=== PATIENT | male | born 1985 | race Caucasian/White ===

== ENCOUNTER 2016-12-13 00:57 | Emergency (ER) | payer OTHER ==
[~2016-12-13] VITALS: Ht 177.8 cm; Wt 90.5 kg
[2016-12-13 01:03] VITALS: Ht 177.8 cm; Wt 90.5 kg
[2016-12-13] MEDS ORDERED: LORAZEPAM 2 MG INJ IM ONE (02:00)
[2016-12-13] MEDS ORDERED: IBUP200C11 PO (02:28)
[2016-12-13] MEDS ORDERED: HYDR-2086 PO (04:01)
--- NOTE | 2016-12-13 04:03 | ERD ---
ER Documentation Chief Complaint Date/Time DATE: 12/13/16 TIME: 04:02 Chief Complaint had a seizure due to etoh withrawal and drank few hrs ago after the seizure HPI 31-year-old male had a seizure due to the EtOH withdrawal. Patient said he drank a few hours ago. Also complaining chronic back pain. Denies any hallucinations. Denies any other current issues. ROS All systems reviewed and are negative except as per history of present illness. Medications Home Meds Active Scripts Hydrocodone Bit-Acetaminophen* (Vicodin*) 5-300 Tab, 1 TAB PO Q4H Y for PAIN, # 14 TAB Prov:SOPHIE PANCHAL 12/13/16 Reported Medications Ibuprofen* (Advil*) 200 Mg Capsule, 400 MG PO Q6H Y for PAIN, CAP 12/13/16 Allergies Allergies: Coded Allergies: No Known Allergy (Unverified , 12/13/16) PMhx/Soc History of Surgery: No Anesthesia Reaction: No Hx Neurological Disorder: No Hx Respiratory Disorders: No Hx Cardiac Disorders: No Hx Psychiatric Problems: No Hx Miscellaneous Medical Probl: No Hx Alcohol Use: Yes Smoking Status: Heavy tobacco smoker Physical Exam Vitals Vital Signs Date Time Temp Pulse Resp B/P Pulse Ox O2 Delivery O2 Flow Rate FiO2 12/13/16 01:03 98.1 114 20 141/82 96 Physical Exam Const: [] Head: Atraumatic Eyes: Normal Conjunctiva ENT: Normal External Ears, Nose and Mouth. Neck: Full range of motion..~ No meningismus. Resp: Clear to auscultation bilaterally Cardio: Regular rate and rhythm, no murmurs Abd: Soft, non tender, non distended. Normal bowel sounds Skin: No petechiae or rashes Back: No midline or flank tenderness Ext: No cyanosis, or edema Neur: Awake and alert Psych: Normal Mood and Affect Results 24 hrs Current Medications Medications (Trade) Dose Ordered Sig/Toshia Route PRN Reason Start Time Stop Time Status Last Admin Dose Admin Lorazepam (Ativan) 1 mg ONCE ONCE IM 12/13/16 02:00 12/13/16 02:01 DC 12/13/16 01:48 Procedures/MDM Medical decision-makin mL of mild withdrawal. Also with chronic back pain. Patient feels better now. Stabilized. Will be discharged home. Follow- up with PCP. Departure Diagnosis: Primary Impression: Alcohol withdrawal syndrome Complication of substance-induced condition: uncomplicated Qualified Code: F10.230 - Alcohol withdrawal syndrome, uncomplicated Additional Impression: Back pain Back pain location: back pain in unspecified location Chronicity: unspecified Back pain laterality: unspecified Qualified Code: M54.9 - Back pain, unspecified back location, unspecified back pain laterality, unspecified chronicity Condition: Stable Patient Instructions: Back Pain (Acute Or Chronic) SOPHIE PANCHAL Dec 13, 2016 04:03
[2016-12-13] MEDS ORDERED: OXYCODONE/ACETAMINOPHEN (5/325) TAB PO ONE (04:30)
[2016-12-13 04:42] VITALS: BP 132/80; PULSE 88; RESP 20; TEMP 97.8
== END 2016-12-13 04:44 | disposition home or self-care (01) ==
LOC: E/R 00:57
DX: F10.230 Alcohol dependence with withdrawal, uncomplicated (principal); M54.9 Dorsalgia, unspecified; F17.210 Nicotine dependence, cigarettes, uncomplicated
CPT/HCPCS: 96372; J2060; Z7502; Z7610